=== PATIENT | male | born 1955 | race African-American/Black ===

== ENCOUNTER 2018-09-06 14:45 | Inpatient (IN) | payer MEDICARE, MEDICAID ==
[~2018-09-06 14:45] MED LIST: ISOVUE-370 76%-LOCM 1 ML ONE
--- NOTE | 2018-09-06 16:05 | CT ---
CT arteriogram chest with IV contrast and 3-D MIP imaging HISTORY: Chest pain. Dyspnea. Pneumonia. COMPARISON: 04/04/2018 and earlier noncontrast exam on the same date. FINDINGS: There is good contrast opacification of the pulmonary arteries and thoracic aorta with norm al branching great vessels at the aortic arch. Small amount of pleural fluid and dense consolidation within the posterior segment right upper lobe a re unchanged from recent noncontrast study. Nonenlarged, nonspecific lymph nodes are scattered about the mediastinum. Small hiatal hernia. IMPRESSION: No CT evidence of pulmonary embolus. Right upper lobe pneumonia and small amount right pleural fluid appear stable.
[2018-09-06] MEDS ORDERED: Acetaminophen 500 MG TAB ONE (16:43)
[2018-09-06] MEDS ORDERED: Acetaminophen 325 MG TAB PO PRN ×2 (16:44→21:41)
[2018-09-06 18:25] VITALS: BMI 29.2
[2018-09-06] MEDS ORDERED: cloNIDine 0.1 MG TAB PO PRN (21:41)
[2018-09-06] MEDS ORDERED: Nitroglycerin 0.4 MG TAB (25 Tab Bottle) SL PRN (21:41)
[2018-09-06] MEDS ORDERED: Dextrose 50% Abboject 50 ML SYRINGE SLOW IVP PRN (21:41)
[2018-09-06] MEDS ORDERED: Calcium Carbonate 500 MG ChewTAB PO PRN (21:41)
[2018-09-06] MEDS ORDERED: HumaLOG 300 UNITS/3 ML VIAL SC PRN ×2 (21:41)
[2018-09-06] MEDS ORDERED: hydrALAZINE 20 MG/ML VIAL SLOW IVP PRN (21:41)
[2018-09-06] MEDS ORDERED: Ondansetron PF 4 MG/2 ML Vial IVP PRN (21:41)
[2018-09-06] MEDS ORDERED: Bisacodyl 5 MG TAB PO PRN (21:41)
[2018-09-06] MEDS ORDERED: Ondansetron ODT 4 MG TAB PO PRN (21:41)
[2018-09-06] MEDS ORDERED: Benzonatate 100 MG CAP PO PRN (21:41)
[2018-09-06] MEDS ORDERED: Dextrose 5% in Water 1,000 ML IV PRN (21:41)
[2018-09-06] MEDS ORDERED: Senokot S 8.6-50 MG TAB PO PRN (21:41)
[2018-09-06] MEDS: Sodium Chloride 0.9% 1,000 ML IV SCH (22:56)
[2018-09-06] MEDS: cefTRIAXone\\ROCEPHIN 1 GM in Sodium Chloride 0.9% 100 ML IVPB SCH (22:57)
[2018-09-06] MEDS ORDERED: guaiFENesin ER 600 MG TAB PO SCH (23:00)
[2018-09-06] MEDS: Azithromycin 500 MG in Sodium Chloride 0.9% 250 ML 250 ML IVPB SCH (23:12)
--- NOTE | 2018-09-07 04:11 | HP ---
PRIMARY CARE PHYSICIAN: Saadia Olivares. CHIEF COMPLAINT: Shortness of breath. HISTORY OF PRESENTING ILLNESS: Mr. Dill is a 63-year-old male with known history of COPD, tobacco abuse, ongoing, as well as history of CLL, diabetes, hypertension, and gout, who presented to [facility] with above-mentioned complaints. History is mainly obtained by the patient himself who was a very poor historian. According to the ER records, Mr. Dill went to the ER for complaints of shortness of breath of moderate intensity, he had gradual onset of symptoms, which has been progressively worsening. He reports that he also has been having some cough without any specific fever or chills at home. He denies any relieving factors. He continues to smoke. He denies any chest pain, orthopnea or PND. Upon presentation to the ER, his oxygen saturation was 97% on room air. He had a chest x-ray done, which shows possible right mid lung opacity versus neoplasm, so he underwent a chest CT which shows right upper lobe pneumonia. Later, he underwent a CT angio of the chest for some reason, which was negative for any pulmonary embolism and once again confirmed the finding of right upper lobe pneumonia. He was given empiric antibiotics and was transferred to our facility for further care. Upon presentation to our emergency room, he was febrile with a temperature of 100.2, oxygen saturation 96% on room air. He was somewhat hypertensive as well with a blood pressure of 169/72. [facility] was called for admission for pneumonia and the patient is being admitted to medical floor for same. PAST MEDICAL HISTORY: 1. COPD. 2. History of CLL. 3. Diabetes mellitus. 4. Gout. 5. Peripheral vascular disease requiring toe amputation. 6. Dyslipidemia. PAST SURGICAL HISTORY: 1. Toe amputation. 2. Right femoral popliteal bypass. ALLERGIES: NO KNOWN MEDICATION ALLERGIES. FAMILY HISTORY: Diabetes mellitus and coronary artery disease in some family members. SOCIAL HISTORY: He smokes 3 packs per cigarettes for 38 years, not down to 1 pack per day. No history of drug abuse, but he does drink. CURRENT MEDICATIONS: As follows: 1. Atorvastatin 20 mg daily. 2. Allopurinol 100 mg daily. 3. Metformin 850 p.o. b.i.d. 4. Lisinopril 20 mg daily. 5. Aspirin 325 mg daily. 6. Loratadine 10 mg daily. 7. Amlodipine 10 mg daily. 8. Ibrutinib 420 mg daily. 9. And please go back. 10. Ranitidine 150 mg p.o. daily. REVIEW OF SYSTEMS: A 14-point review of systems is done and is negative except for those mentioned in the history and physical. LABORATORY DATA: CBC has WBCs at 18 with 81% neutrophils, hemoglobin 13.5, platelet 187. PT, PTT, and INR are within normal limits. Serum chemistries, sodium 135, bicarb 22, blood sugar 112. BNP normal. IMAGING: Cardiac enzymes within normal limits. Chest x-ray by my review shows right-sided upper lobe pneumonia. CT angio negative for pulmonary embolism consistent with right upper lobe pneumonia. PHYSICAL EXAMINATION: VITAL SIGNS: Most recent vital signs temperature 98.1, heart rate 70, respirations 20, saturating 96% on room air, blood pressure 135/76. GENERAL: No acute distress. Awake, alert, and oriented x3. He appears ill-kempt and poor hygiene. HEENT: Mucous membrane is moist and pink. No oropharyngeal exudate or erythema. Head is normocephalic and atraumatic. Pupils are equal and reactive to light and accommodation. Extraocular movement intact. NECK: Supple without any lymphadenopathy, JVD, or bruit. CHEST: Chest evaluation showed decreased breath sounds at bases and on the right side. CARDIAC: Rate rhythm is regular without any murmurs, rubs, or gallops. ABDOMEN: Soft, nontender, and nondistended. Positive bowel sounds. EXTREMITIES: Free of any cyanosis, clubbing, or edema. NEUROLOGICAL: Nonfocal. SKIN: Free of any rashes or bruises, feels warm and dry to touch. PSYCHIATRIC: Normal affect. IMPRESSION AND PLAN: 1. Right upper lobe pneumonia. The patient will be treated with broad-spectrum IV antibiotics and IV fluids. Blood culture will be followed. We will treat him with nebulizers, oxygen, Mucinex, incentive spirometry, symptomatic and supportive care. 2. Uncontrolled hypertension. We will restart his home medication of lisinopril and amlodipine. Add p.r.n. antihypertensives as well. 3. Dyslipidemia. Restart Lipitor. 4. Diabetes mellitus. Hold metformin as he has slight metabolic acidosis. We will put him on insulin sliding scale with Accu-Cheks before meals and at bedtime. 5. Chronic obstructive pulmonary disease, currently without acute exacerbation. Restart his home medication and add DuoNebs and oxygen on as needed basis. 6. Tobacco abuse. The patient has been counseled. 7. Code status, full code. Discussed with the patient. 8. Deep venous thrombosis and gastrointestinal prophylaxis and p.r.n. medications. DISPOSITION: Mr. Dill is currently hemodynamically stable and will be admitted to medical floor for right upper lobe pneumonia without evidence of sepsis. ESTIMATED LENGTH OF STAY: At this time is at least 2 to 3 midnights. Further management will depend upon his clinical course. Job ID: [id number]
[2018-09-07 06:51] LABS: Anion Gap 10 mmol/L (10-20); BUN (Urea Nitrogen) 21 mg/dL (8.4-25.7); Calc. Creatinine Clearance 116 mL/min (70-130); Calcium 8.6 mg/dL (7.8-10.44); Carbon Dioxide 26 mmol/L (23-31); Chloride 106 mmol/L (98-107); Estimated GFR-MDRD Greater than 90; Glucose 130 mg/dL (80-115); Potassium 3.9 mmol/L (3.5-5.1); Sodium 138 mmol/L (136-145)
[2018-09-07 07:06] LABS: #Lymphocytes 1.1 thou/uL (1.20-3.40); #Monocytes 0.5 thou/uL (0.11-0.59); #Neutrophils 6.4 thou/uL (1.40-6.50); %Basophils 0.4 % (0.0-1.0); %Eosinophils 0.3 % (0.0-10.0); %Lymphocytes 13.8 % (21.0-51.0); %Monocytes 5.9 % (0.0-10.0); %Neutrophils 79.7 % (42.0-75.0); Hemoglobin 12.1 g/dL (14.0-18.0); Mean Corpuscular HGB CONC 33.3 g/dL (32.0-36.0); Mean Corpuscular Hemoglobin 26.7 pg (27.0-31.0); Mean Corpuscular Volume 80.4 fL (78.0-98.0); Mean Platelet Volume 9.2 fL (7.4-10.4); Platelet Count 162 thou/uL (130-400); RBC Distribution Width 14.2 % (11.5-14.5); Red Blood Cell (RBC) Count 4.51 mill/uL (4.70-6.10); White Blood Cell (WBC) Count 8.1 thou/uL (4.8-10.8)
[2018-09-07] MEDS ORDERED: Sodium Chloride 0.65% Nasal 44 ML BOT EA NARE PRN (07:17)
[2018-09-07] MEDS ORDERED: HYDROcodone/Acetaminophen 5/325 mg Tablet PO PRN (07:17)
[2018-09-07] MEDS ORDERED: Artificial Tears 18 DROP/0.9 ML EA EYE PRN (07:17)
[2018-09-07] MEDS ORDERED: Loperamide HCl 2 MG CAP PO PRN (07:17)
[2018-09-07] MEDS ORDERED: Cepastat Lozenges 1 LOZ PO PRN (07:17)
[2018-09-07] MEDS ORDERED: Zolpidem Tartrate 5 MG TAB PO PRN (07:17)
[2018-09-07] MEDS ORDERED: Eucerin (Mineral Oil/Petrolatum,White) 30 gm Jar TOP PRN (07:17)
[2018-09-07] MEDS: guaiFENesin ER 600 MG TAB PO SCH ×2 (08:08→20:30)
[2018-09-07] MEDS: Lisinopril 20 MG TAB PO SCH (08:08)
[2018-09-07] MEDS: Famotidine 20 MG TAB PO SCH ×2 (08:08→20:30)
[2018-09-07] MEDS: Atorvastatin Calcium 20 MG TAB PO SCH (08:08)
[2018-09-07] MEDS: Allopurinol 100 MG TAB PO SCH ×2 (08:08→20:30)
[2018-09-07] MEDS: Loratadine 10 MG TAB PO SCH (08:09)
[2018-09-07] MEDS: Enoxaparin Sodium 40 MG/0.4 ML SYRINGE SC SCH (08:09)
[2018-09-07] MEDS: Amlodipine 10 MG TAB PO SCH (08:09)
[2018-09-07] MEDS: Aspirin 325 MG TAB PO SCH (08:09)
[2018-09-07] MEDS ORDERED: Enoxaparin Sodium 40 MG/0.4 ML SYRINGE SC SCH (09:00)
[2018-09-07] MEDS ORDERED: Ibrutinib [Imbruvica] PO SCH (09:00)
--- NOTE | 2018-09-07 10:12 | PDOC.PN ---
- Subjective Encounter Start Date: 09/07/18 Encounter Start Time: 09:10 -: old records requested/rev Patient seen and examined. No new complaints. No overnight events - Objective Resuscitation Status - Order Detail: 09/06/18 16:44 Resuscitation Status Routine Resuscitation Status: FULL: Full Resuscitation MAR Reviewed: Yes Vital Signs & Weight: Vital Signs (12 hours) Temp Pulse Resp BP BP Pulse Ox 09/07/18 08:28 98.2 F 80 16 143/68 H 96 09/07/18 08:09 72 09/07/18 08:08 143/68 H 09/07/18 06:52 72 18 100 09/07/18 03:49 99.0 F 75 20 121/67 95 09/07/18 02:39 96 09/07/18 00:32 98.1 F 70 20 135/76 96 Weight Weight 227 lb 12.8 oz I&O: 09/06/18 09/07/18 09/08/18 06:59 06:59 06:59 Intake Total 980 240 Balance 980 240 Result Diagrams: 09/07/18 06:19 09/07/18 05:42 Additional Labs: Accuchecks 09/07/18 09/06/18 03:44 19:12 POC Glucose 159 H 112 H Radiology Reviewed by me: Yes Phys Exam - Physical Examination Constitutional: NAD HEENT: PERRLA, moist MMs, sclera anicteric Neck: no JVD, supple Respiratory: no rales, wheezing present Cardiovascular: RRR, no significant murmur, no rub Gastrointestinal: soft, non-tender, no distention, positive bowel sounds Musculoskeletal: no edema, pulses present Neurological: non-focal, normal sensation, moves all 4 limbs Lymphatic: no nodes Psychiatric: normal affect, A&O x 3 Skin: no rash, normal turgor Dx/Plan (1) Right upper lobe pneumonia Code(s): J18.1 - LOBAR PNEUMONIA, UNSPECIFIED ORGANISM Status: Acute (2) CLL (chronic lymphocytic leukemia) Code(s): C91.90 - LYMPHOID LEUKEMIA, UNSPECIFIED NOT HAVING ACHIEVED REMISSION Status: Chronic (3) COPD (chronic obstructive pulmonary disease) Status: Chronic (4) Diabetes type 2, controlled Code(s): E11.9 - TYPE 2 DIABETES MELLITUS WITHOUT COMPLICATIONS Status: Chronic (5) Dyslipidemia Code(s): E78.5 - HYPERLIPIDEMIA, UNSPECIFIED Status: Chronic (6) Hypertension Code(s): I10 - ESSENTIAL (PRIMARY) HYPERTENSION Status: Chronic (7) Tobacco abuse Code(s): Z72.0 - TOBACCO USE Status: Chronic - Plan cont current plan of care, continue antibiotics, respiratory therapy * continue rocephin and azithromycin * continue respiratory therapy * medication reviewed as below * symptomatic treatment. * continue IVF * home meds reconciled Review of Systems - Review of Systems ENT: negative: Ear Pain, Ear Discharge, Nose Pain, Nose Discharge, Nose Congestion, Mouth Pain, Mouth Swelling, Throat Pain, Throat Swelling, Other Respiratory: negative: Cough, Dry, Shortness of Breath, Hemoptysis, SOB with Excertion, Pleuritic Pain, Sputum, Wheezing Cardiovascular: negative: chest pain, palpitations, orthopnea, paroxysmal nocturnal dyspnea, edema, light headedness, other Gastrointestinal: negative: Nausea, Vomiting, Abdominal Pain, Diarrhea, Constipation, Melena, Hematochezia, Other Genitourinary: negative: Dysuria, Frequency, Incontinence, Hematuria, Retention , Other Musculoskeletal: negative: Neck Pain, Shoulder Pain, Arm Pain, Back Pain, Hand Pain, Leg Pain, Foot Pain, Other - Medications/Allergies Allergies/Adverse Reactions: Allergies Allergy/AdvReac Type Severity Reaction Status Date / Time No Known Allergies Allergy Unverified 01/26/13 16:18 Medications: Current Medications Acetaminophen (Tylenol) 650 mg PO Q4H PRN PRN Reason: Headache/Fever/Mild Pain (1-3) Hydrocodone Bitart/Acetaminophen ([place] 5/325) 1 tab PO Q4H PRN PRN Reason: Moderate Pain (4-6) Albuterol/Ipratropium (Duoneb) 3 ml NEB [id number] PRN PRN Reason: SOB &/or Wheezing Albuterol/Ipratropium (Duoneb) 3 ml NEB [id number] SCH Last Admin: 09/07/18 06:52 Dose: 3 ml Allopurinol (Zyloprim) 100 mg PO BID [facility] Last Admin: 09/07/18 08:08 Dose: 100 mg Amlodipine Besylate (Norvasc) 10 mg PO DAILY [facility] Last Admin: 09/07/18 08:09 Dose: 10 mg Artificial Tears (Tears Naturale) 2 drop EA EYE PRN PRN PRN Reason: Dry Eyes Aspirin (Aspirin) 325 mg PO DAILY [facility] Last Admin: 09/07/18 08:09 Dose: 325 mg Atorvastatin Calcium (Lipitor) 20 mg PO DAILY [facility] Last Admin: 09/07/18 08:08 Dose: 20 mg Benzonatate (Tessalon) 100 mg PO Q6H PRN PRN Reason: Cough Bisacodyl (Dulcolax) 10 mg PO DAILYPRN PRN PRN Reason: Constipation Calcium Carbonate (Tums) 1,000 mg PO Q4H PRN PRN Reason: Heartburn or Indigestion Clonidine (Catapres) 0.1 mg PO Q4H PRN PRN Reason: SBP >160 ____ Dextrose/Water (Dextrose 50%) 25 gm SLOW IVP PRN PRN PRN Reason: Hypoglycemia Enoxaparin Sodium (Lovenox) 40 mg SC 0900 [facility] Last Admin: 09/07/18 08:09 Dose: 40 mg Famotidine (Pepcid) 20 mg PO BID [facility] Last Admin: 09/07/18 08:08 Dose: 20 mg Glucagon (Glucagon) 1 mg IM PRN PRN PRN Reason: Hypoglycemia Guaifenesin (Robitussin Sf) 200 mg PO Q4H PRN PRN Reason: Cough Guaifenesin (Mucinex) 1,200 mg PO Q12HR [facility] Last Admin: 09/07/18 08:08 Dose: 1,200 mg Hydralazine HCl (Apresoline) 10 mg SLOW IVP Q4H PRN PRN Reason: SBP > 170 and HR < 70 Azithromycin 500 mg/ Sodium (Chloride) 250 mls @ 250 mls/hr IVPB Q24HR [facility] Last Admin: 09/06/18 23:12 Dose: 250 mls Ceftriaxone Sodium 1 gm/ (Sodium Chloride) 100 mls @ 200 mls/hr IVPB Q24HR [facility] Last Admin: 09/06/18 22:57 Dose: 100 mls Dextrose/Water (D5w) 1,000 mls @ 0 mls/hr IV .Q0M PRN PRN Reason: Hypoglycemia Sodium Chloride (Normal Saline 0.9%) 1,000 mls @ 75 mls/hr IV .[id number] [facility] Last Admin: 09/06/18 22:56 Dose: 1,000 mls Insulin Human Lispro (Humalog) 0 units SC .MILD SLIDING SCALE PRN PRN Reason: Mild Correctional Scale Insulin Human Lispro (Humalog) 0 units SC .BEDTIME SLIDING SC PRN PRN Reason: Bedtime Correctional Scale Lisinopril (Zestril) 20 mg PO DAILY [facility] Last Admin: 09/07/18 08:08 Dose: 20 mg Loperamide HCl (Imodium) 2 mg PO PRN PRN PRN Reason: Diarrhea/Loose Stools Loratadine (Claritin) 10 mg PO DAILY [facility] Last Admin: 09/07/18 08:09 Dose: 10 mg Mineral Oil/White Petrolatum (Eucerin Cream) 0 gm TOP BIDPRN PRN PRN Reason: Dry Skin Nitroglycerin (Nitrostat) 0.4 mg SL Q5MIN PRN PRN Reason: Chest Pain Ondansetron HCl (Zofran Odt) 4 mg PO Q6H PRN PRN Reason: Nausea/Vomiting Ondansetron HCl (Zofran) 4 mg IVP Q6H PRN PRN Reason: Nausea/Vomiting Ibrutinib [Imbruvica (]) 0 each PO DAILY [facility] Senna/Docusate Sodium (Senokot S) 2 tab PO BID PRN PRN Reason: Constipation Sodium Chloride (Flush - Normal Saline) 10 ml IVF Q12HR [facility] Last Admin: 09/07/18 08:09 Dose: 10 ml Sodium Chloride (Flush - Normal Saline) 10 ml IVF PRN PRN PRN Reason: Saline Flush Sodium Chloride ([place] Nasal [place] 0.65%) 0 ml EA NARE QIDPRN PRN PRN Reason: Nasal Congestion Throat Lozenges (Cepastat Lozenges) 1 christine PO Q2H PRN PRN Reason: Sore Throat Zolpidem Tartrate (Ambien) 5 mg PO HSPRN PRN PRN Reason: Insomnia
[2018-09-07] MEDS: Sodium Chloride 0.9% 1,000 ML IV SCH (11:16)
[2018-09-07] MEDS ORDERED: Famotidine 20 MG TAB PO SCH (21:00)
[2018-09-07] MEDS ORDERED: RANITIDINE HCL PO SCH (21:00)
[2018-09-07] MEDS: cefTRIAXone\\ROCEPHIN 1 GM in Sodium Chloride 0.9% 100 ML IVPB SCH (21:35)
[2018-09-07] MEDS: Diabetic Tussin 200 MG/10 ML UDCUP PO PRN (21:40)
[2018-09-07] MEDS: Azithromycin 500 MG in Sodium Chloride 0.9% 250 ML 250 ML IVPB SCH (23:06)
[2018-09-08] MEDS: Sodium Chloride 0.9% 1,000 ML IV SCH ×2 (00:39→08:53)
[2018-09-08] MEDS: Enoxaparin Sodium 40 MG/0.4 ML SYRINGE SC SCH (08:39)
[2018-09-08] MEDS: Allopurinol 100 MG TAB PO SCH (08:40)
[2018-09-08] MEDS: Amlodipine 10 MG TAB PO SCH (08:40)
[2018-09-08] MEDS: guaiFENesin ER 600 MG TAB PO SCH (08:41)
[2018-09-08] MEDS: Famotidine 20 MG TAB PO SCH (08:41)
[2018-09-08] MEDS: Loratadine 10 MG TAB PO SCH (08:41)
[2018-09-08] MEDS: Lisinopril 20 MG TAB PO SCH (08:41)
[2018-09-08] MEDS: Atorvastatin Calcium 20 MG TAB PO SCH (08:41)
[2018-09-08] MEDS: Aspirin 325 MG TAB PO SCH (08:41)
[2018-09-08] MEDS: Diabetic Tussin 200 MG/10 ML UDCUP PO PRN ×2 (10:29→16:20)
[2018-09-08] MEDS ORDERED: Prevnar 13-Val Conj/PF 0.5 ML SYRINGE IM ONE (17:00)
[2018-09-08 17:23] VITALS: BP 152/72; TEMP 97.8
[2018-09-08] MEDS ORDERED: cefTRIAXone\\ROCEPHIN 1 GM in Sodium Chloride 0.9% 100 ML IVPB SCH (22:00)
[2018-09-08] MEDS ORDERED: Azithromycin 500 MG in Sodium Chloride 0.9% 250 ML 250 ML IVPB SCH (23:00)
--- NOTE | 2018-09-09 01:11 | DIS ---
DATE OF ADMISSION: 09/06/2018 DATE OF DISCHARGE: 09/08/2018 CONDITION: At the time of discharge, stable and improved. DISCHARGE DISPOSITION: Home. PRIMARY CARE PHYSICIAN: Saadia Olivares, LISANDRO, [employer]-. DISCHARGE DIAGNOSES: 1. Right upper lobe pneumonia, likely community-acquired pneumonia. 2. Chronic obstructive pulmonary disease without acute exacerbation. 3. Chronic lymphocytic leukemia. 4. Diabetes mellitus type 2. 5. Dyslipidemia. 6. Hypertension. 7. Tobacco abuse. DISCHARGE MEDICATIONS: New medication: 1. Omnicef 300 mg p.o. b.i.d. 2. DuoNeb q.i.d. p.r.n. 3. Florastor 250 mg daily for 10 days. Restart home medications, no changes were made. Please see admission history and physical dictated by myself on 09/07/2018, for full list. Reviewed prior to discharge. PROCEDURES DONE IN THE HOSPITAL: CT angio of the thorax which is negative for any evidence of pulmonary embolism, but shows right upper lobe pneumonia. HISTORY OF PRESENTING ILLNESS: Mr. Dill is a 63-year-old male with known history of COPD, tobacco abuse, hypertension, dyslipidemia, diabetes with history of CLL which is apparently in remission, who presented to [facility] with complaints of worsening shortness of breath, cough, subjective fever, and chills at home. He was hemodynamically stable upon presentation and after workup in the emergency room, was found to have right upper lobe pneumonia confirmed on the CT angio. He was admitted after he received empiric antibiotics in the emergency room and emergent care. Please see admission history and physical dictated by myself from the date of admission. HOSPITAL COURSE: The patient had quick improvement in his symptoms with the IV antibiotics. Cultures were sent and blood cultures were negative till date. He was not requiring any oxygen in the hospital and his vital signs were stable. His clinical symptoms have also resolved. He is walking around with a walking program without any shortness of breath or requirement for oxygen. He was seen and examined this morning and is back to baseline and will be discharged after a dose of IV antibiotics today. He was treated with azithromycin and Rocephin in the emergency room and these are being changed to oral at the time of discharge, which he will continue for several more days and will follow up with his primary care physician in 1 to 2 weeks. Discharge plan was discussed with the patient who verbalized understanding. He was seen and examined prior to discharge. PHYSICAL EXAMINATION: VITAL SIGNS: Stable. Saturating 98% on room air, blood pressure 137/73. CHEST: Clear to auscultation bilaterally. HEART: Rate and rhythm regular. All questions were answered. Job ID: [id number]
[2018-09-09] MEDS ORDERED: Ibrutinib [Imbruvica] PO SCH (09:00)
== END 2018-09-08 17:29 | disposition home or self-care (01) | DRG 194 ==
LOC: ERS 14:45 → T4-B 18:20
PROVIDERS: ADMIT Internal Medicine; ATTEND Internal Medicine
DX: J18.1 Lobar pneumonia, unspecified organism (principal); J44.0 Chronic obstructive pulmonary disease with (acute) lower respiratory infection; E87.2 Acidosis; C91.11 Chronic lymphocytic leukemia of B-cell type in remission; E11.51 Type 2 diabetes mellitus with diabetic peripheral angiopathy without gangrene; I10 Essential (primary) hypertension; M10.9 Gout, unspecified; E78.5 Hyperlipidemia, unspecified; F17.210 Nicotine dependence, cigarettes, uncomplicated; Z79.82 Long term (current) use of aspirin; Z79.899 Other long term (current) drug therapy; Z79.84 Long term (current) use of oral hypoglycemic drugs; Z88.2 Allergy status to sulfonamides; Z89.421 Acquired absence of other right toe(s)
CPT/HCPCS: 36415; 36416; 71275; 80048; 85025; 90471; 90670; 94640; G0009; J0456; J0696; J1650; J3490; J7050; J7620; Q9966

== ENCOUNTER 2021-02-12 13:19 | Outpatient (CLI) | payer MEDICARE, OTHER ==
[2021-02-12 14:03] LABS: Hemoglobin 15.1 g/dL (13.5-17.5); Mean Corpuscular HGB CONC 33.2 g/dL (32.0-36.0); Mean Corpuscular Volume 87.5 fl (81.2-95.1); Mean Platelet Volume 12.4 fl (7.4-10.4); Platelet Count 133 10x3/uL (150-450); RBC Distribution Width 13.2 % (11.5-14.5); White Blood Cell (WBC) Count 7.1 10x3/uL (3.5-10.5)
[2021-02-12 14:16] LABS: Anion Gap 12 mmol/L (10-20); BUN (Urea Nitrogen) 12 mg/dL (8.4-25.7); Calc. Creatinine Clearance 0 mL/min (70-130); Calcium 9.5 mg/dL (7.8-10.44); Carbon Dioxide 24 mmol/L (23-31); Chloride 107 mmol/L (98-107); Glucose 169 mg/dL (80-115); Potassium 4.2 mmol/L (3.5-5.1); Sodium 139 mmol/L (136-145)
[2021-02-12 14:37] LABS: PTT 24.7 sec (22.0-33.0); Prothrombin Time 10.7 sec (9.5-12.1)
[2021-02-13 12:57] LABS: SARS-CoV-2 PCR by NAA Not Detected (NotDetected)
== END 2021-02-12 13:20 | disposition home or self-care (01) ==
LOC: LABBT 13:19
PROVIDERS: ATTEND Urology
DX: Z01.818 Encounter for other preprocedural examination (principal); C91.91 Lymphoid leukemia, unspecified, in remission; N40.1 Benign prostatic hyperplasia with lower urinary tract symptoms; F10.10 Alcohol abuse, uncomplicated; I25.10 Atherosclerotic heart disease of native coronary artery without angina pectoris; R80.9 Proteinuria, unspecified; R31.29 Other microscopic hematuria; R97.20 Elevated prostate specific antigen [PSA]; E11.9 Type 2 diabetes mellitus without complications; M1A.9XX0 Chronic gout, unspecified, without tophus (tophi); Z72.0 Tobacco use; Z20.822 Contact with and (suspected) exposure to COVID-19
CPT/HCPCS: 71046; 80048; 85027; 85610; 85730; 93005; U0003; U0005; 93010

== ENCOUNTER 2021-02-17 06:30 | Day surgery (SDC) | payer MEDICARE, OTHER ==
[2021-02-16 10:22] VITALS: BMI 30.2
[2021-02-17] MEDS ORDERED: Sodium Chloride 0.9% 100 ML ONE (06:36)
[2021-02-17] MEDS ORDERED: cefTRIAXone\\ROCEPHIN 2 GM VIAL ONE (06:36)
[2021-02-17] MEDS ORDERED: Levofloxacin 500 mg/D5W 100 ml Premix Bag ONE (06:36)
[2021-02-17] MEDS ORDERED: Fentanyl 100 MCG/2 ML VIAL ONE (06:55)
[2021-02-17] MEDS ORDERED: PROPOFOL 200 MG/20 ML VIAL ONE (07:41)
[2021-02-17] MEDS ORDERED: Phenazopyridine HCl 100 MG TAB ONE (08:22)
[2021-02-17] MEDS ORDERED: Tamsulosin HCl 0.4 MG CAP ONE (08:24)
== END 2021-02-17 09:56 | disposition home or self-care (01) ==
LOC: SDC 06:30
PROVIDERS: ATTEND Urology
PROC: 0VB03ZX Excision of Prostate, Percutaneous Approach, Diagnostic (ICD-10-PCS; principal; 2021-02-17)
DX: C61 Malignant neoplasm of prostate (principal); N41.0 Acute prostatitis; N40.1 Benign prostatic hyperplasia with lower urinary tract symptoms; R35.1 Nocturia; R39.15 Urgency of urination; R97.20 Elevated prostate specific antigen [PSA]; I25.10 Atherosclerotic heart disease of native coronary artery without angina pectoris; J44.9 Chronic obstructive pulmonary disease, unspecified; E11.51 Type 2 diabetes mellitus with diabetic peripheral angiopathy without gangrene; I10 Essential (primary) hypertension; K21.9 Gastro-esophageal reflux disease without esophagitis; E78.5 Hyperlipidemia, unspecified; F17.210 Nicotine dependence, cigarettes, uncomplicated; F10.20 Alcohol dependence, uncomplicated; C91.91 Lymphoid leukemia, unspecified, in remission; M1A.09X0 Idiopathic chronic gout, multiple sites, without tophus (tophi); E66.9 Obesity, unspecified; Z68.30 Body mass index [BMI] 30.0-30.9, adult; Z79.02 Long term (current) use of antithrombotics/antiplatelets; Z79.82 Long term (current) use of aspirin; Z79.84 Long term (current) use of oral hypoglycemic drugs; Z79.899 Other long term (current) drug therapy; Z88.2 Allergy status to sulfonamides; Z95.5 Presence of coronary angioplasty implant and graft
CPT/HCPCS: 88305; 88341; 88342; J0696; J1956; J2704; J3010; J3490

== ENCOUNTER 2021-03-15 13:20 | Outpatient (CLI) | payer MEDICARE, OTHER ==
[~2021-03-15 13:20] MED LIST changes: -ISOVUE-370 76%-LOCM 1 ML ONE; +Iopamidol 370 76% 100 ML VIAL ONE
== END 2021-03-15 13:21 | disposition home or self-care (01) ==
LOC: BICCT 13:20 → RAD 13:21
PROVIDERS: ATTEND Urology
DX: C61 Malignant neoplasm of prostate (principal); R31.29 Other microscopic hematuria; R80.9 Proteinuria, unspecified; E79.0 Hyperuricemia without signs of inflammatory arthritis and tophaceous disease
CPT/HCPCS: 74178; Q9967

== ENCOUNTER 2021-11-11 11:47 | Outpatient (CLI) | payer MEDICARE, OTHER ==
[2021-11-11 12:50] LABS: Hemoglobin 12.8 g/dL (13.5-17.5); MDiff Complete? YES; Mean Corpuscular HGB CONC 33.1 g/dL (32.0-36.0); Mean Corpuscular Hemoglobin 28.6 pg (27.0-33.0); Mean Corpuscular Volume 86.6 fl (81.2-95.1); Mean Platelet Volume 11.5 fl (7.4-10.4); Platelet Count 199 10x3/uL (150-450); RBC Distribution Width 14.6 % (11.5-14.5); Red Blood Cell (RBC) Count 4.47 10x6/uL (4.32-5.72)
[2021-11-11 13:04] LABS: Anion Gap 17 mmol/L (10-20); BUN (Urea Nitrogen) 13 mg/dL (8.4-25.7); Calc. Creatinine Clearance 0 mL/min (70-130); Calcium 8.8 mg/dL (7.8-10.44); Carbon Dioxide 22 mmol/L (23-31); Chloride 107 mmol/L (98-107); Glucose 137 mg/dL (80-115); Potassium 4.4 mmol/L (3.5-5.1); Sodium 142 mmol/L (136-145)
[2021-11-11 13:27] LABS: Band 2 % (5-11); Metamyelocyte 1 % (0-0); Neutrophil 41 % (42-75); Reactive Lymphocytes 3 % (0-10)
[2021-11-11 13:30] LABS: Lymphocytes 48 % (21-51); Monocytes 5 % (0-10)
== END 2021-11-11 11:48 | disposition home or self-care (01) ==
LOC: LABBT 11:47
PROVIDERS: ATTEND Specialist
DX: Z01.818 Encounter for other preprocedural examination (principal); Z20.822 Contact with and (suspected) exposure to COVID-19; C91.10 Chronic lymphocytic leukemia of B-cell type not having achieved remission; D50.0 Iron deficiency anemia secondary to blood loss (chronic)
CPT/HCPCS: 71046; 80048; 80053; 82248; 83615; 84100; 84550; 85025; 93005; U0003; U0005; 36415; 93010

== ENCOUNTER 2021-11-15 05:52 | Day surgery (SDC) | payer MEDICARE, MEDICAID ==
[2021-11-12 10:20] VITALS: BMI 27.8
[2021-11-15] MEDS ORDERED: Acetaminophen 500 MG TAB ONE (06:27)
[2021-11-15] MEDS ORDERED: Ketorolac Tromethamine 30 MG/ML VIAL ONE (06:27)
[2021-11-15] MEDS ORDERED: fentaNYL Citrate/PF 100 MCG/2 ML SYRINGE ONE ×2 (07:11→07:50)
[2021-11-15] MEDS ORDERED: Sodium Chloride 0.9% 100 ML ONE (07:24)
[2021-11-15] MEDS ORDERED: CEFAZOLIN 2 GM VIAL ONE (07:24)
[2021-11-15] MEDS ORDERED: Dexamethasone 20 MG/5 ML VIAL ONE (07:35)
[2021-11-15] MEDS ORDERED: Ondansetron PF 4 MG/2 ML Vial ONE (07:35)
[2021-11-15] MEDS ORDERED: PROPOFOL 200 MG/20 ML VIAL ONE (07:35)
[2021-11-15] MEDS ORDERED: Lidocaine 1% PF 5 ML VIAL ONE (07:35)
[2021-11-15] MEDS ORDERED: Fentanyl 100 MCG/2 ML VIAL ONE (08:52)
[2021-11-15] MEDS ORDERED: HYDROcodone/Acetaminophen 5/325 mg Tablet ONE (09:47)
== END 2021-11-15 10:30 | disposition home or self-care (01) ==
LOC: SDC 05:52
PROVIDERS: ATTEND Specialist
PROC: 0Y6P0Z0 Detachment at Right 1st Toe, Complete, Open Approach (ICD-10-PCS; principal; 2021-11-15)
PROC: 0Y6R0Z0 Detachment at Right 2nd Toe, Complete, Open Approach (ICD-10-PCS; 2021-11-15)
DX: E11.69 Type 2 diabetes mellitus with other specified complication (principal); M86.171 Other acute osteomyelitis, right ankle and foot; E11.52 Type 2 diabetes mellitus with diabetic peripheral angiopathy with gangrene; I96 Gangrene, not elsewhere classified; I10 Essential (primary) hypertension; F17.210 Nicotine dependence, cigarettes, uncomplicated; I25.10 Atherosclerotic heart disease of native coronary artery without angina pectoris; J44.9 Chronic obstructive pulmonary disease, unspecified; K21.9 Gastro-esophageal reflux disease without esophagitis; E78.5 Hyperlipidemia, unspecified; F10.20 Alcohol dependence, uncomplicated; Z85.6 Personal history of leukemia; Z79.02 Long term (current) use of antithrombotics/antiplatelets; Z79.82 Long term (current) use of aspirin; Z79.84 Long term (current) use of oral hypoglycemic drugs; Z79.899 Other long term (current) drug therapy; Z88.2 Allergy status to sulfonamides; Z89.421 Acquired absence of other right toe(s); Z95.5 Presence of coronary angioplasty implant and graft
CPT/HCPCS: 88305; 88311; J0690; J1100; J1885; J2405; J2704; J3010; J3490

== ENCOUNTER 2022-01-19 18:00 | Inpatient (IN) | payer OTHER, MEDICAID ==
[2022-01-19] MEDS ORDERED: Aspirin Chewable 81 MG TAB ONE (18:23)
[2022-01-19 18:25] LABS: Hemoglobin 13.1 g/dL (14.0-18.0); Mean Corpuscular HGB CONC 32.8 g/dL (32.0-36.0); Mean Corpuscular Volume 88.5 fL (78.0-98.0); Mean Platelet Volume 9.9 fL (7.4-10.4); Platelet Count 140 thou/uL (130-400); RBC Distribution Width 13.5 % (11.5-14.5); Red Blood Cell (RBC) Count 4.52 mill/uL (4.70-6.10); White Blood Cell (WBC) Count 18.5 thou/uL (4.8-10.8)
[2022-01-19 18:32] LABS: PTT 26.2 sec (22.9-36.1); Prothrombin Time 12.8 sec (12.0-14.7)
[2022-01-19 18:41] LABS: ALT (SGPT) Less than 7 U/L (8-55); AST (SGOT) 9 U/L (5-34); Albumin 3.7 g/dL (3.4-4.8); Alkaline Phosphatase 67 U/L (40-110); Anion Gap 15 mmol/L (10-20); BUN (Urea Nitrogen) 12 mg/dL (8.4-25.7); Bilirubin, Total 0.3 mg/dL (0.2-1.2); Calc. Creatinine Clearance 0 mL/min (70-130); Calcium 8.7 mg/dL (7.8-10.44); Carbon Dioxide 20 mmol/L (23-31); Chloride 106 mmol/L (98-107); Estimated GFR 96; Globulin 2.6 g/dL (2.4-3.5); Glucose 137 mg/dL (80-115); Lipase 13 U/L (8-78); Magnesium 1.6 mg/dL (1.6-2.6); Potassium 4.1 mmol/L (3.5-5.1); Protein, Total 6.3 g/dL (5.8-8.1); Sodium 137 mmol/L (136-145)
[2022-01-19 18:48] LABS: Lymphocytes 51 % (21-51); MDiff Complete? YES; Monocytes 2 % (0-10); Neutrophil 28 % (42-75); Platelet Morphology Comment Appears Adequate; Polychromasia SLIGHT = 2-3 cells (100X) (0-2/hpf); Reactive Lymphocytes 19 % (0-10)
[2022-01-19 21:47] LABS: Bacteria/HPF None Seen HPF (None Seen); Bilirubin Negative (Negative); Blood, Urine Trace (Negative); Clarity Clear (Clear); Glucose, Urine (Dipstick) Normal (Negative); Ketone, Urine Negative (Negative); Leukocyte Negative Leu/uL (Negative); Nitrite Negative (Negative); Protein, Urine (Dipstick) Negative (Neg-Trace); RBC/HPF 0-3 HPF (0-3); Specific Gravity, Urine 1.022 (1.002-1.036); Squamous Epithelial 0-3 HPF (0-3); WBC/HPF 0-3 HPF (0-3)
[2022-01-19 22:05] VITALS: BMI 27.0
[2022-01-19] MEDS ORDERED: Acetaminophen 650 MG Suppository PR PRN (23:03)
[2022-01-19] MEDS ORDERED: Ondansetron ODT 4 MG TAB PO PRN (23:03)
[2022-01-19] MEDS ORDERED: Acetaminophen 325 MG TAB PO PRN (23:03)
[2022-01-19] MEDS ORDERED: Ondansetron PF 4 MG/2 ML Vial IVP PRN (23:03)
[2022-01-19] MEDS ORDERED: hydrALAZINE 20 MG/ML VIAL SLOW IVP PRN (23:03)
[2022-01-20] MEDS ORDERED: Meclizine HCl 12.5 MG TAB PO PRN (02:30)
[2022-01-20 05:08] LABS: Anion Gap 13 mmol/L (10-20); BUN (Urea Nitrogen) 12 mg/dL (8.4-25.7); Calc. Creatinine Clearance 127 mL/min (70-130); Calcium 8.5 mg/dL (7.8-10.44); Carbon Dioxide 22 mmol/L (23-31); Cardiac Risk 4.3 (Less than 4.5); Chloride 107 mmol/L (98-107); Cholesterol 134 mg/dl (< 200 Desired); Estimated GFR 98; Glucose 81 mg/dL (80-115); HDL Cholesterol 31 mg/dL (>60 Neg Risk); LDL Cholesterol, Calculated 80 mg/dL; Potassium 3.6 mmol/L (3.5-5.1); Sodium 138 mmol/L (136-145); Triglycerides 116 mg/dL (Less than 150)
[2022-01-20 05:16] LABS: Eosinophils 2 % (0-10); Hemoglobin 12.3 g/dL (14.0-18.0); Lymphocytes 58 % (21-51); MDiff Complete? YES; Mean Corpuscular Hemoglobin 28.6 pg (27.0-31.0); Mean Corpuscular Volume 89.4 fL (78.0-98.0); Mean Platelet Volume 10.3 fL (7.4-10.4); Monocytes 6 % (0-10); Neutrophil 34 % (42-75); Platelet Count 119 thou/uL (130-400); Platelet Morphology Comment Appears Adequate; RBC Distribution Width 13.6 % (11.5-14.5); Red Blood Cell (RBC) Count 4.29 mill/uL (4.70-6.10); White Blood Cell (WBC) Count 11.7 thou/uL (4.8-10.8)
[2022-01-20] MEDS: Aspirin 81 mg Enteric Coated Tablet PO SCH (09:19)
[2022-01-20] MEDS: Enoxaparin Sodium 40 MG/0.4 ML SYRINGE SC SCH (09:19)
[2022-01-20] MEDS ORDERED: Iopamidol 370 76% 100 ML VIAL ONE (14:29)
[2022-01-20] MEDS: hydrALAZINE 20 MG/ML VIAL SLOW IVP PRN (17:26)
[2022-01-20] MEDS ORDERED: Atorvastatin Calcium 40 MG TAB PO SCH (21:00)
[2022-01-21] MEDS: hydrALAZINE 20 MG/ML VIAL SLOW IVP PRN (01:06)
[2022-01-21] MEDS ORDERED: Allopurinol 100 MG TAB PO SCH (09:00)
[2022-01-21] MEDS ORDERED: Clopidogrel Bisulfate 75 MG TAB PO SCH (09:00)
[2022-01-21] MEDS ORDERED: Lisinopril 20 MG TAB PO SCH (09:00)
[2022-01-21] MEDS ORDERED: Amlodipine 10 MG TAB PO SCH (09:00)
[2022-01-21] MEDS: Aspirin 81 mg Enteric Coated Tablet PO SCH (09:43)
[2022-01-21] MEDS: Enoxaparin Sodium 40 MG/0.4 ML SYRINGE SC SCH (09:44)
[2022-01-21] MEDS ORDERED: Simvastatin 5 MG TAB PO SCH (17:00)
[2022-01-21 17:32] VITALS: BP 165/70; TEMP 97.8
== END 2022-01-21 20:05 | disposition home or self-care (01) | DRG 948 ==
LOC: ERS 18:00 → 2NO 21:13
PROVIDERS: ADMIT Internal Medicine; ATTEND Internal Medicine
DX: R53.1 Weakness (principal); C91.10 Chronic lymphocytic leukemia of B-cell type not having achieved remission; R42 Dizziness and giddiness; Z20.822 Contact with and (suspected) exposure to COVID-19; M10.9 Gout, unspecified; E11.9 Type 2 diabetes mellitus without complications; I10 Essential (primary) hypertension; J44.9 Chronic obstructive pulmonary disease, unspecified; F17.210 Nicotine dependence, cigarettes, uncomplicated; I45.4 Nonspecific intraventricular block; I51.89 Other ill-defined heart diseases; Z89.421 Acquired absence of other right toe(s); Z88.2 Allergy status to sulfonamides; Z79.899 Other long term (current) drug therapy; Z79.82 Long term (current) use of aspirin; Z79.84 Long term (current) use of oral hypoglycemic drugs
CPT/HCPCS: 36415; 36416; 70450; 70496; 70498; 70551; 71045; 80048; 80053; 80061; 81003; 81015; 83690; 83735; 83880; 84443; 84484; 85025; 85610; 85730; 93005; 95712; 95819; 95957; 96360; J0360; J1650; Q9967; U0003; U0005

== ENCOUNTER 2022-03-17 09:32 | Outpatient (CLI) | payer OTHER | END 2022-03-17 09:33 | disposition home or self-care (01) | LOC: RAD 09:32 | PROVIDERS: ATTEND Internal Medicine Hematology & Oncology | DX: R06.02 Shortness of breath (principal); R05.9 Cough, unspecified; C91.10 Chronic lymphocytic leukemia of B-cell type not having achieved remission; D50.0 Iron deficiency anemia secondary to blood loss (chronic) | CPT/HCPCS: 36415; 71046; 80053; 82248; 83615; 84100; 84550; 88184 ==

== ENCOUNTER 2022-06-16 12:30 | Outpatient (CLI) | payer OTHER | END 2022-06-16 12:31 | LOC: PET 12:30 | PROVIDERS: ATTEND Internal Medicine Hematology & Oncology | DX: C91.10 Chronic lymphocytic leukemia of B-cell type not having achieved remission (principal); R94.8 Abnormal results of function studies of other organs and systems | CPT/HCPCS: 78815; A9552 ==

== ENCOUNTER 2022-11-21 11:00 | Outpatient (CLI) | payer OTHER, MEDICAID | END 2022-11-21 11:01 | disposition home or self-care (01) | LOC: PET 11:00 | PROVIDERS: ATTEND Internal Medicine Hematology & Oncology | DX: C91.10 Chronic lymphocytic leukemia of B-cell type not having achieved remission (principal) | CPT/HCPCS: 78815; A9552 ==

== ENCOUNTER 2023-10-12 11:22 | Outpatient (CLI) | payer OTHER, MEDICAID | END 2023-10-12 11:23 | disposition home or self-care (01) | LOC: RAD 11:22 | PROVIDERS: ATTEND Radiology Radiation Oncology | DX: C32.1 Malignant neoplasm of supraglottis (principal); R13.10 Dysphagia, unspecified | CPT/HCPCS: 74230 ==